=== PATIENT | female | born 1985 | race Caucasian/White ===

== ENCOUNTER → 2018-12-27 | Outpatient (REF) | payer BC ==
[~2018-12-27] MED LIST: LEVOTHYROXIN25 MCG PO; LORTAB5 PO; MEDDOSEPAK PO; ULTRAM50 MG PO; XOPENEX1.25 MG IN
== END | disposition home or self-care (01) | DRG 645 ==
LOC: NUCMED 09:53 → CT 09:53
PROVIDERS: ATTEND Internal Medicine Geriatric Medicine
DX: E04.9 Nontoxic goiter, unspecified (principal)
CPT/HCPCS: A9516